=== PATIENT | female | born 1995 ===

== ENCOUNTER 2019-06-23 19:30 | Inpatient (IN) | payer BC ==
--- NOTE | 2019-06-23 12:18 | PDOC.LDHP ---
Labor and Delivery H&P HPI: 23 y/o at 39 and 0 weeks for term elective induction of labor. Current gestational age (weeks): 39 Due date: 06/30/19 Grav: 1 Para: 0 Current complications: none Abnormal US findings: No Current medications: pre-angie vitamins Previous surgical history: none Social history: none - Physical Exam Vital signs reviewed and normal: yes General: NAD, resting Heart: RRR Lungs: nonlabored breathing Abdomen: NTTP Extremeties: no edema FHT: category 1 - Assessment L&D Assessment: elective induction at term - Plan Plan: admit to L&D, cervical ripening
[~2019-06-23 19:30] MED LIST: Acetaminophen 500 MG TAB PO PRN; Butorphanol Tartrate 1 MG/ML VIAL SLOW IVP PRN; Carboprost 250 MCG/ML AMP IM PRN; Diphenoxylate HCl/Atropine Tablet PO PRN; HYDROcodone/Acetaminophen 5/325 mg Tablet PO PRN; Ibuprofen 800 MG TAB PO PRN; Lidocaine 1% (PF) 30 ML VIAL SC PRN; Methylergonovine 0.2 MG/ML VIAL IM PRN; Misoprostol 200 MCG TAB PR PRN; NS / Oxytocin 40 units/1000ml 1,000 ML IV PRN; NS w/ Oxytocin 10 units 500 ML IV SCH; Ondansetron PF 4 MG/2 ML Vial IVP PRN; Promethazine HCl 25 MG/ML VIAL IM PRN; Zolpidem Tartrate 5 MG TAB PO PRN; hydrALAZINE 20 MG/ML VIAL SLOW IVP PRN
[2019-06-23] MEDS: Lactated Ringer's 1,000 ML IV SCH (20:30)
[2019-06-23 20:36] VITALS: BMI 28.8
[2019-06-23 20:48] LABS: Hemoglobin 12.6 g/dL (12.0-16.0); Mean Corpuscular HGB CONC 35.7 g/dL (32.0-36.0); Mean Corpuscular Hemoglobin 29.4 pg (27.0-31.0); Mean Corpuscular Volume 82.3 fL (78.0-98.0); Platelet Count 214 thou/uL (130-400); RBC Distribution Width 11.4 % (11.5-14.5); White Blood Cell (WBC) Count 10.2 thou/uL (4.8-10.8)
[2019-06-23] MEDS: Misoprostol 100 MCG TAB VAG SCH (20:56)
[2019-06-23 21:29] LABS: Syphilis Antibody Nonreactive (Nonreactive); Syphilis Antibody Index 0.06 S/CO (<1.00 Non-Reactive)
[2019-06-23 21:41] LABS: HBSAg Index 0.14 S/CO (0-0.99); Hep B Surf Ag Non-Reactive S/CO (NonReactive)
[2019-06-24] MEDS ORDERED: Fentanyl 4 mcg/Bup 0.1% Cadd 0 ML ONE (01:18)
[2019-06-24] MEDS: Lactated Ringer's 1,000 ML IV SCH (01:31)
[2019-06-24] MEDS ORDERED: hydrALAZINE 20 MG/ML VIAL SLOW IVP PRN (03:46)
[2019-06-24] MEDS ORDERED: NS / Oxytocin 40 units/1000ml 1,000 ML IV SCH (03:46)
[2019-06-24] MEDS ORDERED: Lanolin Ointment 7 GM TUBE TOP PRN (03:46)
[2019-06-24] MEDS ORDERED: HYDROcodone/Acetaminophen 5/325 mg Tablet PO PRN ×2 (03:46)
[2019-06-24] MEDS ORDERED: diphenhydrAMINE 25 MG CAP PO PRN (03:46)
[2019-06-24] MEDS ORDERED: Promethazine HCl 25 MG/ML VIAL IM PRN (03:46)
[2019-06-24] MEDS ORDERED: Zolpidem Tartrate 5 MG TAB PO PRN (03:46)
[2019-06-24] MEDS ORDERED: Ondansetron PF 4 MG/2 ML Vial IVP PRN (03:46)
[2019-06-24] MEDS ORDERED: Benzocaine-Menthol 82.5 ML CAN TOP PRN (03:46)
[2019-06-24] MEDS ORDERED: Methylergonovine 0.2 MG/ML VIAL IM PRN (03:46)
[2019-06-24] MEDS ORDERED: Milk Of Magnesia 30 ML UDCUP PO PRN (03:46)
[2019-06-24] MEDS ORDERED: Preparation H Ointment 28 GM TUBE PR PRN (03:46)
[2019-06-24] MEDS ORDERED: Bisacodyl 10 MG SUPP PR PRN (03:46)
[2019-06-24] MEDS: Ibuprofen 800 MG TAB PO SCH ×4 (04:25→21:10)
[2019-06-24] MEDS: Ferrous Sulfate 325 MG TAB PO SCH ×2 (07:38→16:50)
[2019-06-24] MEDS ORDERED: Varicella virus, LIVE 0.5 ML VIAL SC ONE (09:00)
[2019-06-24] MEDS ORDERED: Adacel (T-DAP) 0.5 ML SYRINGE IM ONE (09:00)
[2019-06-24] MEDS ORDERED: Measles/Mumps/Rubella 10 MCG/0.5 ML VIAL SC ONE (09:00)
[2019-06-24] MEDS: Misoprostol 100 MCG TAB VAG SCH (09:41)
[2019-06-24] MEDS: Docusate Calcium (SURFAK) 240 MG CAP PO SCH ×2 (09:42→20:04)
[2019-06-24] MEDS: Prenatal Vitamin 1 TAB PO SCH (09:42)
[2019-06-25] MEDS: Ibuprofen 800 MG TAB PO SCH ×4 (00:08→21:13)
[2019-06-25 05:36] LABS: Mean Corpuscular HGB CONC 34.7 g/dL (32.0-36.0); Mean Corpuscular Hemoglobin 29.4 pg (27.0-31.0); Mean Corpuscular Volume 84.9 fL (78.0-98.0); Mean Platelet Volume 7.6 fL (7.4-10.4); Platelet Count 191 thou/uL (130-400); RBC Distribution Width 11.7 % (11.5-14.5); Red Blood Cell (RBC) Count 3.74 mill/uL (4.20-5.40); White Blood Cell (WBC) Count 10.6 thou/uL (4.8-10.8)
[2019-06-25] MEDS: Ferrous Sulfate 325 MG TAB PO SCH ×2 (08:46→18:33)
[2019-06-25] MEDS: Prenatal Vitamin 1 TAB PO SCH (11:50)
[2019-06-25] MEDS: Docusate Calcium (SURFAK) 240 MG CAP PO SCH ×2 (11:50→21:13)
--- NOTE | 2019-06-25 19:28 | PDOC.PP ---
Post Progress Note Post Day #: 1 PO intake tolerated: yes Flatus: yes Ambulation: yes Weight Weight 184 lb - Physical Examination General: NAD Cardiovascular: no m/r/g Respiratory: clear to auscultation bilaterally, non-labored breathing Abdominal: + bowel sounds, lochia Extremities: negative homans (B) Neurological: no gross focal deficits Psychiatric: A&Ox3, normal affect (DC tomorrow planned) Result Diagrams: 06/25/19 05:28 Additional Labs: Post Labs Blood Type A POSITIVE 06/23/19 21:20 Hep Bs Antigen Non-Reactive S/CO (NonReactive) 06/23/19 20:24
--- NOTE | 2019-06-26 01:09 | DN ---
DATE OF PROCEDURE: 06/24/2019 TIME OF SERVICE: At 0225 hours, [place] Day[employer] Savings Time. PREOPERATIVE DIAGNOSIS: Intrauterine at 39 weeks and 1 day with a term induction of labor. POSTOPERATIVE DIAGNOSIS: Intrauterine at 39 weeks and 1 day with a term induction of labor. PROCEDURE PERFORMED: Spontaneous vaginal delivery over second-degree laceration of the perineum. FINDINGS: Viable female infant weighing 3374 g or 7 pounds 7 ounces with Apgars of 8 and 9. QUANTITATIVE BLOOD LOSS: 259 mL. COMPLICATIONS: None. PROCEDURE IN DETAIL: The patient presented to [facility] where she was admitted to the labor and delivery service. The patient underwent a normal and uneventful labor with normal cervical dilatation until she was found to be completely dilated. She was then allowed to push and was able to bring the baby down and delivered the baby in a vertex presentation without difficulties. Once the head delivered in occiput anterior position, the shoulders followed spontaneously along with the rest of the baby's body. Once out the baby's mouth and nose were bulb suctioned. The cord was clamped and cut and baby was handed to waiting attendants. Cord blood was collected. Gentle fundal massage was performed and the placenta delivered intact without problems. Hemostasis was assured. Quantitative blood loss was calculated. Inspection of the cervix, vaginal vault, and perineum did not reveal any lacerations needing suturing. Once again, hemostasis was within normal limits and the patient was allowed to recover in the labor and delivery room. Baby went to nursery. Job ID: [id number]
[2019-06-26] MEDS: Ibuprofen 800 MG TAB PO SCH ×2 (06:33→16:38)
[2019-06-26 08:30] VITALS: BP 138/83; TEMP 98.7
[2019-06-26] MEDS: Ferrous Sulfate 325 MG TAB PO SCH ×2 (10:56→17:00)
[2019-06-26] MEDS: Docusate Calcium (SURFAK) 240 MG CAP PO SCH (10:57)
[2019-06-26] MEDS: Prenatal Vitamin 1 TAB PO SCH (10:57)
== END 2019-06-26 17:50 | disposition home or self-care (01) | DRG 807 ==
LOC: L&D 19:32 → 3SW 06-24 05:09
PROVIDERS: ADMIT Obstetrics & Gynecology; ATTEND Obstetrics & Gynecology
PROC: 10E0XZZ Delivery of Products of Conception, External Approach (ICD-10-PCS; principal; 2019-06-24)
PROC: 0KQM0ZZ Repair Perineum Muscle, Open Approach (ICD-10-PCS; 2019-06-24)
PROC: 3E033VJ Introduction of Other Hormone into Peripheral Vein, Percutaneous Approach (ICD-10-PCS; 2019-06-24)
DX: O70.1 Second degree perineal laceration during delivery (principal); Z37.0 Single live birth; Z3A.39 39 weeks gestation of pregnancy
CPT/HCPCS: 36415; 85027; 86780; 86850; 86900; 86901; 87340